=== PATIENT | male | born 1985 | race Caucasian/White ===

== ENCOUNTER 2016-07-10 12:56 | Outpatient (CLI) | payer BC | END 2016-07-10 12:57 | disposition home or self-care (01) | DX: Z00.00 Encounter for general adult medical examination without abnormal findings (principal); B35.1 Tinea unguium ==

== ENCOUNTER 2016-08-21 11:24 | Outpatient (CLI) | payer BC | END 2016-08-21 11:25 | disposition home or self-care (01) | DX: Z00.00 Encounter for general adult medical examination without abnormal findings (principal); B35.1 Tinea unguium ==

== ENCOUNTER 2018-09-30 11:05 | Outpatient (CLI) | payer BC ==
[2018-09-30 19:05] LABS: BASOPHILS # (AUTO) 0.1 10^3/uL (0.0-0.1); BASOPHILS % (AUTO) 0.9 %; EOSINOPHILS # (AUTO) 0.1 10^3/uL (0.0-0.7); EOSINOPHILS % (AUTO) 2.1 %; HGB - HEMOGLOBIN 13.8 g/dL (14.0-18.0); LYMPHOCYTES # (AUTO) 2.1 10^3/uL (1.5-3.5); LYMPHOCYTES % (AUTO) 38.5 %; MEAN CORPUSCULAR HGB CONC 33.4 g/dL (32.0-36.0); MEAN CORPUSCULAR VOLUME 86.9 fL (80.0-94.0); MEAN PLATELET VOLUME 8.4 fL (7.4-11.4); MONOCYTES # (AUTO) 0.4 10^3/uL (0.0-1.0); MONOCYTES % (AUTO) 7.1 %; NEUTROPHILS # (AUTO) 2.8 10^3/uL (1.5-6.6); NEUTROPHILS % (AUTO) 51.4 %; PLT - PLATELET COUNT 203 10^3/uL (130-450); RED BLOOD COUNT 4.75 10^6/uL (4.70-6.10); RED CELL DISTRIBUTION WIDTH 13.1 % (12.0-15.0); WHITE BLOOD COUNT 5.5 x10^3/uL (4.8-10.8)
[2018-09-30 19:17] LABS: ALBUMIN 4.2 g/dL (3.2-5.5); ALBUMIN/GLOBULIN RATIO 1.4 (1.0-2.2); ALKALINE PHOSPHATASE 71 IU/L (42-121); ALT ALANINE AMINOTRANSFERASE 24 IU/L (10-60); AST ASPARTATE AMINOTRANSFERASE 25 IU/L (10-42); BILIRUBIN,TOTAL 1.3 mg/dL (0.2-1.0); BUN - BLOOD UREA NITROGEN 24 mg/dL (6-20); CALCIUM 8.9 mg/dL (8.5-10.3); CARBON DIOXIDE - CO2 27 mmol/L (21-32); CHLORIDE 102 mmol/L (101-111); CHOL/HDL RATIO 2.7 (<5.0); CHOLESTEROL 183 mg/dL; CREATININE 1.1 mg/dL (0.6-1.2); GFR - MDRD 77 (>89); GLUCOSE 93 mg/dL (70-100); HDL CHOLESTEROL 69 mg/dL; LDL CHOLESTEROL,CALCULATED 86 mg/dL; LDL/HDL RATIO 1.2 (<3.6); SODIUM 138 mmol/L (135-145); TOTAL PROTEIN 7.1 g/dL (6.7-8.2); VLDL CHOLESTEROL 28 mg/dL
== END 2018-09-30 11:06 | disposition home or self-care (01) ==
LOC: LAB.WCP 11:05
PROVIDERS: ATTEND Physician Assistant
DX: Z00.00 Encounter for general adult medical examination without abnormal findings (principal)
CPT/HCPCS: 36415; 80053; 80061; 83721; 84443; 85025

== ENCOUNTER 2019-11-09 10:50 | Outpatient (CLI) | payer BC ==
[2019-11-09 17:54] LABS: BASOPHILS # (AUTO) 0.1 10^3/uL (0.0-0.1); BASOPHILS % (AUTO) 1.1 %; EOSINOPHILS # (AUTO) 0.3 10^3/uL (0.0-0.7); EOSINOPHILS % (AUTO) 5.6 %; HGB - HEMOGLOBIN 14.7 g/dL (14.0-18.0); LYMPHOCYTES # (AUTO) 1.7 10^3/uL (1.5-3.5); LYMPHOCYTES % (AUTO) 31.1 %; MEAN CORPUSCULAR HEMOGLOBIN 29.4 pg (27.0-31.0); MEAN CORPUSCULAR HGB CONC 32.8 g/dL (32.0-36.0); MEAN CORPUSCULAR VOLUME 89.6 fL (80.0-94.0); MEAN PLATELET VOLUME 10.2 fL (7.4-11.4); MONOCYTES # (AUTO) 0.4 10^3/uL (0.0-1.0); MONOCYTES % (AUTO) 7.7 %; NEUTROPHILS # (AUTO) 2.9 10^3/uL (1.5-6.6); NEUTROPHILS % (AUTO) 54.1 %; PLT - PLATELET COUNT 224 10^3/uL (130-450); RED CELL DISTRIBUTION WIDTH 12.6 % (12.0-15.0); WHITE BLOOD COUNT 5.3 x10^3/uL (4.8-10.8)
[2019-11-09 18:16] LABS: ALBUMIN 4.8 g/dL (3.2-5.5); ALBUMIN/GLOBULIN RATIO 1.6 (1.0-2.2); BILIRUBIN,TOTAL 1.6 mg/dL (0.2-1.0); CALCIUM 9.4 mg/dL (8.5-10.3); CREATININE 0.8 mg/dL (0.6-1.2); TOTAL PROTEIN 7.8 g/dL (6.7-8.2)
== END 2019-11-09 23:59 | disposition home or self-care (01) ==
LOC: LAB.WCP 10:50
PROVIDERS: ATTEND Physician Assistant
DX: Z00.00 Encounter for general adult medical examination without abnormal findings (principal)
CPT/HCPCS: 36415; 80053; 84443; 85025

== ENCOUNTER 2019-11-09 11:12 | Outpatient (CLI) | payer BC ==
--- NOTE | 2019-11-09 11:51 | XRAY Report ---
Reason: JOINT PAIN HANDS Procedure Date: 11/09/2019 Accession Number: [id number] / [id number] Procedure: WCP - Hand 2 View BILAT CPT Code: Final Report FULL RESULT: PROCEDURE: Hand 2 View BILAT INDICATIONS: JOINT PAIN HANDS TECHNIQUE: 2 views of the hand(s) acquired. COMPARISON: None. FINDINGS: On the right, scattered degenerative spurring and sclerosis.No definite focal lucencies. First CMC and triscaphe joint degeneration. On the left, scattered degenerative spurring and sclerosis. Subtle focal lucency seen at the distal radius at the distal radioulnar joint. Similar very subtle lucency potentially at the base of the fifth metacarpal. First CMC and triscaphe joint degeneration. IMPRESSION: Bilateral mild joint degeneration as above. Subtle focal lucency at the distal radius, at the distal radioulnar joint which could be cyst or erosion. Recommend correlation to point tenderness. If the patient's pain or other symptoms persist, consider further evaluation with MRI. Reviewed by: Mathew Coombs MD on 11/09/2019 11:49 AM PDT Approved by: Mathew Coombs MD on 11/09/2019 11:49 AM PDT Station ID: [id number]
--- NOTE | 2019-11-09 11:55 | XRAY Report ---
Reason: COUGH Procedure Date: 11/09/2019 Accession Number: [id number] / [id number] Procedure: WCP - Chest 2 View X-Ray CPT Code: 40845 Final Report FULL RESULT: PROCEDURE: Chest 2 View X-Ray INDICATIONS: COUGH TECHNIQUE: 2 view(s) of the chest. COMPARISON: None. FINDINGS: Surgical changes and devices: None. Lungs and pleura: No pleural effusions or pneumothorax. Lungs are clear. Mediastinum: Mediastinal contours are normal. Heart size is normal. Bones and chest wall: No suspicious bony abnormalities. Soft tissues appear unremarkable. IMPRESSION: No acute disease Reviewed by: Mathew Coombs MD on 11/09/2019 11:54 AM PDT Approved by: Mathew Coombs MD on 11/09/2019 11:54 AM PDT Station ID: [id number]
== END 2019-11-09 23:59 | disposition home or self-care (01) ==
LOC: DI.WCP 11:12
PROVIDERS: ATTEND Physician Assistant
DX: R05 Cough (principal); M19.042 Primary osteoarthritis, left hand; M19.041 Primary osteoarthritis, right hand
CPT/HCPCS: 36415; 71046; 80053; 84443; 85025

== ENCOUNTER 2019-12-28 14:53 | Outpatient (CLI) | payer BC ==
--- NOTE | 2019-12-28 17:00 | MRI Report ---
PROCEDURE: Wrist LT W/O INDICATIONS: PAIN IN LEFT WRIST TECHNIQUE: Noncontrast coronal proton density fast spin echo and T2 fast spin echo with fat saturation; coronal 3-D gradient echo, axial T1 spin echo and T2 fast spin echo with fat saturation, sagittal T1 spin ech o through the wrist. COMPARISON: Hand and wrist radiograph dated 11/09/2019. FINDINGS: Image quality: Diagnostic. Patient motion is noted. Bones and cartilage: The carpal bones are normally aligned. No bone marrow contusions or fractures. 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 Small amount of joint effusion is noted in the radiocarpal and intercarpal joints. No evidence for avascular necrosis. No definite bony erosive changes are seen. Carpal ligaments: The scapholunate and lunotriquetral ligaments appear intact. In the absence of in tra-articular contrast, the extrinsic carpal ligaments are not well identified. On sagittal images, the pisohamate ligament appears intact. Triangular fibrocartilage complex: The triangular fibrocartilage appears intact. The adjacent menis augustin homolog appears normal in the absence of intra-articular contrast. The extensor carpi ulnaris te ndon is normal in location and morphology. Tendons and soft tissues: The carpal tunnel structures appear normal, including the median nerve. T he ulnar nerve appears normal within Guyon?s canal. All six extensor tendon compartments demonstrate normal morphology, without pathologic tendon sheath fluid. No soft tissue ganglion cysts. IMPRESSION: 1. Slightly degraded study due to patient motion. 2. Mild osteoarthritic changes and wrist joints particularly along radial aspect of left wrist. No de finite bony erosion is seen. No marrow edema. Small amount of joint effusion. 3. Wrist tendons and ligaments are grossly intact. Triangular fibrocartilage complex is intact. Reviewed by: Howie Fulton MD on 12/28/2019 4:59 PM PDT Approved by: Howie Fulton MD on 12/28/2019 4:59 PM PDT Station ID: [id number]
== END 2019-12-28 14:54 | disposition home or self-care (01) ==
LOC: DI 14:53
PROVIDERS: ATTEND Physician Assistant
DX: M19.032 Primary osteoarthritis, left wrist (principal); M25.432 Effusion, left wrist

== ENCOUNTER 2020-01-25 08:00 | Outpatient (CLI) | payer BC | END 2020-01-25 23:59 | disposition home or self-care (01) | LOC: LAB.WCP 08:00 | PROVIDERS: ATTEND Family Medicine | DX: N34.2 Other urethritis (principal) | CPT/HCPCS: 36415; 84153 ==

== ENCOUNTER 2020-02-29 08:00 | Outpatient (CLI) | payer BC ==
[2020-02-29 12:13] LABS: BASOPHILS % (AUTO) 1.1 %; EOSINOPHILS # (AUTO) 0.1 10^3/uL (0.0-0.7); EOSINOPHILS % (AUTO) 3.7 %; HGB - HEMOGLOBIN 14.4 g/dL (14.0-18.0); LYMPHOCYTES # (AUTO) 1.3 10^3/uL (1.5-3.5); LYMPHOCYTES % (AUTO) 35.4 %; MEAN CORPUSCULAR HEMOGLOBIN 29.8 pg (27.0-31.0); MEAN CORPUSCULAR HGB CONC 33.7 g/dL (32.0-36.0); MEAN CORPUSCULAR VOLUME 88.2 fL (80.0-94.0); MEAN PLATELET VOLUME 9.9 fL (7.4-11.4); MONOCYTES # (AUTO) 0.3 10^3/uL (0.0-1.0); MONOCYTES % (AUTO) 8.2 %; NEUTROPHILS # (AUTO) 1.9 10^3/uL (1.5-6.6); NEUTROPHILS % (AUTO) 51.3 %; PLT - PLATELET COUNT 224 10^3/uL (130-450); RED BLOOD COUNT 4.84 10^6/uL (4.70-6.10); RED CELL DISTRIBUTION WIDTH 11.9 % (12.0-15.0); WHITE BLOOD COUNT 3.8 x10^3/uL (4.8-10.8)
[2020-02-29 12:42] LABS: ALBUMIN 4.7 g/dL (3.2-5.5); ALBUMIN/GLOBULIN RATIO 1.9 (1.0-2.2); BILIRUBIN,TOTAL 1.3 mg/dL (0.2-1.0); CALCIUM 9.3 mg/dL (8.5-10.3); CREATININE 0.9 mg/dL (0.6-1.2); TOTAL PROTEIN 7.2 g/dL (6.7-8.2)
== END 2020-02-29 23:59 | disposition home or self-care (01) ==
LOC: LAB.WCP 08:00
PROVIDERS: ATTEND Physician Assistant Medical
DX: R10.12 Left upper quadrant pain (principal)
CPT/HCPCS: 36415; 80053; 83690; 85025

== ENCOUNTER 2020-03-21 07:33 | Outpatient (CLI) | payer BC ==
--- NOTE | 2020-03-21 09:42 | Ultrasound Report ---
PROCEDURE: Abdomen Limited INDICATIONS: LUQ ABD PAIN. Epigastric pain. TECHNIQUE: Real-time focused scanning was performed of the abdomen, with image documentation. COMPARISON: None FINDINGS: Liver has normal echo pattern. No focal liver masses. Visualized portions of the pancreas are unremarkable. Gallbladder is unremarkable. No gallstones or gallbladder wall thickening or pain o n examination. No dilated ducts. Common bile duct measures 4.8 mm. Spleen is normal in size, measuring 11.8 cm. Right kidney is 10.5 cm. There is no right hydronephrosis. IMPRESSION: 1. Unremarkable limited ultrasound of the abdomen. Findings include normal liver, gallbladder, right kidney, visualized portions of pancreas, and spleen. Reviewed by: Gurvinder Westbrook MD on 03/21/2020 9:40 AM PST Approved by: Gurvinder Westbrook MD on 03/21/2020 9:40 AM PST Station ID: [id number]
== END 2020-03-21 07:34 | disposition home or self-care (01) ==
LOC: DI 07:33
PROVIDERS: ATTEND Physician Assistant Medical
DX: R10.12 Left upper quadrant pain (principal)
CPT/HCPCS: 76705